=== PATIENT | female | born 1950 | race Caucasian/White ===

== ENCOUNTER 2016-06-09 13:40 | Emergency (ER) | payer OTHER ==
[~2016-06-09] VITALS: Ht 165.1 cm; Wt 65.8 kg
[~2016-06-09 13:40] MED LIST: ACYC5OIN TOP; AKWASOL OU; ALB2.5NEB INH; ALBU17IN INH; ALBU83IN INH; ASPI81TA PO; ASPI81TAEC PO; ATOR1TAB21 PO; CALCCHW19 PO; CLOP75TA2 PO; DEMA20TA6 PO; DOXY-278 PO; FAMO20TA PO; FLUT1SPR2; FLUTISP; LISI-538 PO; LOVE0.6I2 SC; MAPA325T2 PO; MILKSUS PO; NORCOTAB PO; OPTI0.5D5 OU; PANT40TA2 PO; PEG1POW PO; SENN1TAB4 PO; SERT50TA PO; SPIR25TA2 PO; SYMB16INH INH; ZANT1TAB PO
[2016-06-09] MEDS ORDERED: FURO20TA2 PO (14:01)
[2016-06-09] MEDS ORDERED: FOLI800C PO (14:01)
[2016-06-09] MEDS ORDERED: DIGO0.12 PO (14:01)
[2016-06-09] MEDS ORDERED: STOO100C PO (14:01)
[2016-06-09] MEDS ORDERED: METO25TA74 PO (14:01)
[2016-06-09] MEDS ORDERED: ENTR1TAB7 PO (14:01)
[2016-06-09] MEDS ORDERED: NS 1,000 ML IV SCH (14:30)
[2016-06-09 15:43] LABS: BASO % 0.3 % (0.0-1.0); EOS % 0.8 % (0.0-3.0); LARGE UNSTAINED CELL # 0.1 K/mm3 (0.0-0.4); LARGE UNSTAINED CELL % 1.3 % (0.0-4.0); LYMPH # 0.2 K/mm3 (1.5-4.5); MEAN CORPUSCULAR HEMOGLOBIN 30.8 pg (27.0-33.0); MEAN CORPUSCULAR HGB CONC 33.8 g/dl (32.0-36.5); MEAN CORPUSCULAR VOLUME 91.2 fl (80.0-96.0); MONO # 0.3 K/mm3 (0.0-0.8); MONO % 4.8 % (0.0-5.0); NEUTROPHILS # 5.1 K/mm3 (1.8-7.7); NEUTROPHILS % 88.8 % (36.0-66.0); PLATELET COUNT, AUTOMATED 198 k/mm3 (150-450); RED CELL DISTRIBUTION WIDTH 12.6 % (11.5-14.5); WHITE BLOOD COUNT 5.8 K/mm3 (4.0-10.0)
[2016-06-09 15:44] LABS: INR 0.94
[2016-06-09 16:07] LABS: ALBUMIN 3.3 GM/DL (3.2-5.2); ALBUMIN/GLOBULIN RATIO 0.97 (1.00-1.93); ALKALINE PHOSPHATASE 73 U/L (45-117); ALT/SGPT 16 U/L (12-78); ANION GAP 6 MEQ/L (8-16); AST/SGOT 16 U/L (15-37); BILIRUBIN,DIRECT < 0.1 MG/DL (0.0-0.2); BILIRUBIN,TOTAL 0.4 MG/DL (0.2-1.0); BLOOD UREA NITROGEN 22 MG/DL (7-18); CALCIUM LEVEL 8.3 MG/DL (8.8-10.2); CARBON DIOXIDE LEVEL 27 MEQ/L (21-32); CHLORIDE LEVEL 104 MEQ/L (98-107); CREATININE FOR GFR 0.71 MG/DL (0.55-1.02); GLOMERULAR FILTRATION RATE > 60.0 (>45); GLUCOSE, FASTING 113 MG/DL (80-110); POTASSIUM SERUM 3.8 MEQ/L (3.5-5.1); SODIUM LEVEL 137 MEQ/L (136-145); TOTAL PROTEIN 6.7 GM/DL (6.4-8.2)
[2016-06-09 16:17] LABS: DIGOXIN LEVEL 0.5 NG/ML (0.5-2.0)
[2016-06-09] MEDS ORDERED: FOLI1TAB2 PO (16:17)
[2016-06-09] MEDS ORDERED: SPIR25TA2 PO (16:21)
--- NOTE | 2016-06-09 16:31 | REP ---
ABDOMINAL SERIES: Supine and erect views of the abdomen demonstrate no free air and no compelling evidence for obstruction. Air is seen in a few scattered small bowel loops in a nonspecific pattern. No air fluid levels are seen on the upright view. There are phleboliths in the pelvis. There are mild degenerative changes in the spine. An accompanying view of the chest demonstrates no acute infiltrate. There is a calcification of the thoracic aorta. There is a left pacemaker. IMPRESSION: No free air and no compelling evidence for small bowel obstruction. Air is scattered throughout the small and large bowel loops in a nonspecific pattern. Signed by Steve Chaudhry MD 06/09/2016 05:45 P
[2016-06-09] MEDS ORDERED: ZOFR4TAB3 PO (17:15)
[2016-06-09 18:11] VITALS: BP 100/54
--- NOTE | 2016-06-10 08:25 | ECGEPIP ---
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 Order Number: [id number] Reading MD: Muriel Dejesus Measurements Intervals [place] Rate: 89 P: 55 SD: 164 QRS: 38 QRSD: 144 T: 137 QT: 381 QTc: 464 Interpretive Statements ELECTRONIC VENTRICULAR PACEMAKER ABNORMAL RHYTHM ECG Electronically Signed On 06-10-2016 8:25:01 EDT by Muriel Dejesus
== END 2016-06-09 18:13 | disposition home or self-care (01) ==
LOC: M ED 14:53
DX: A08.4 Viral intestinal infection, unspecified (principal); E86.0 Dehydration; R06.02 Shortness of breath; I50.9 Heart failure, unspecified; J45.909 Unspecified asthma, uncomplicated; K21.9 Gastro-esophageal reflux disease without esophagitis; F41.9 Anxiety disorder, unspecified; F33.9 Major depressive disorder, recurrent, unspecified; Z95.0 Presence of cardiac pacemaker; Z79.899 Other long term (current) drug therapy; Z79.82 Long term (current) use of aspirin; Z88.1 Allergy status to other antibiotic agents; Z88.2 Allergy status to sulfonamides

== ENCOUNTER → 2017-09-10 | Outpatient (CLI) | payer MEDICARE, OTHER | LOC: M SMT 11:34 | DX: J20.9 Acute bronchitis, unspecified (principal); M51.34 Other intervertebral disc degeneration, thoracic region | CPT/HCPCS: 71046 ==

== ENCOUNTER → 2019-10-11 | Outpatient (REF) | payer MEDICARE, OTHER ==
[~2019-10-11] MED LIST changes: +ASPI81CH32 PO; -ASPI81TA PO; +DIGO0.12 PO; -DOXY-278 PO; +DOXY-350 PO; +ENTR1TAB7 PO; +FLUT50SP17; -FLUTISP; +FOLI1TAB11 PO; +FOLI800C PO; +FURO20TA2 PO; +HYDR-3715 PO; -MAPA325T2 PO; +MAPA325T8 PO; +METO1TAB32 PO; +MILK120011 PO; -MILKSUS PO; +MM S100C PO; -NORCOTAB PO; -PANT40TA2 PO; +PANT40TA29 PO; +SENN18TA PO; -SENN1TAB4 PO; +SERT-141 PO; -SERT50TA PO; +SPIR-10 PO; -SPIR25TA2 PO; +ZANT150T15 PO; -ZANT1TAB PO; +ZOFR4TAB14 PO
== END ==
LOC: M LAB REF 18:52
PROVIDERS: ATTEND Internal Medicine
DX: Z11.59 Encounter for screening for other viral diseases (principal)

== ENCOUNTER → 2021-09-19 | Outpatient (REF) | payer MEDICARE, OTHER ==
[~2021-09-19] MED LIST changes: +ALBU2.5V10 INH; -ALBU83IN INH; +ASPI-569 PO; -ASPI81TAEC PO; -LISI-538 PO; +LISI20TA33 PO; -PEG1POW PO; +POLY17PO18 PO
== END ==
LOC: M LAB REF 12:07
PROVIDERS: ATTEND Internal Medicine
DX: N39.0 Urinary tract infection, site not specified (principal)

== ENCOUNTER → 2021-10-10 | Outpatient (REF) | payer MEDICARE, OTHER | LOC: M LAB REF 11:17 | PROVIDERS: ATTEND Internal Medicine | DX: J06.9 Acute upper respiratory infection, unspecified (principal) ==

== ENCOUNTER → 2022-10-15 | Outpatient (REF) | payer MEDICARE, OTHER ==
[~2022-10-15] MED LIST changes: -AKWASOL OU; +ARTIDRO2 OU; -DOXY-350 PO; +DOXY-444 PO; +SENN-111 PO; -SENN18TA PO
== END ==
LOC: M LAB REF 12:45
PROVIDERS: ATTEND Internal Medicine
DX: J45.909 Unspecified asthma, uncomplicated (principal); I42.0 Dilated cardiomyopathy; N18.31 Chronic kidney disease, stage 3a

== ENCOUNTER → 2023-06-11 | Outpatient (REF) | payer MEDICARE, OTHER ==
[~2023-06-11] MED LIST changes: +DOXY-440 PO; -DOXY-444 PO; +OPTI0.5D2 OU; -OPTI0.5D5 OU
[2023-06-12 12:45] LABS: PERCENT SATURATION 30.1 % (13.2-45.0)
[2023-06-12 12:47] LABS: FERRITIN 63.2 NG/ML (7.3-270.7)
[2023-06-12 12:48] LABS: FOLATE 22.5 NG/ML (>5.4)
== END ==
LOC: M LAB REF 11:27
PROVIDERS: ATTEND Internal Medicine
DX: I42.0 Dilated cardiomyopathy (principal); J45.909 Unspecified asthma, uncomplicated; N18.31 Chronic kidney disease, stage 3a; D50.9 Iron deficiency anemia, unspecified; D64.9 Anemia, unspecified

== ENCOUNTER → 2024-11-25 | Outpatient (REF) | payer MEDICARE, OTHER ==
[~2024-11-25] MED LIST changes: +ASPI-731 PO; -ASPI81CH32 PO; -SENN-111 PO; +SENN-165 PO
== END ==
LOC: M LAB REF 12:24
PROVIDERS: ATTEND Internal Medicine
DX: R30.0 Dysuria (principal); N39.0 Urinary tract infection, site not specified